=== PATIENT | male | born 1965 | race Caucasian/White ===

== ENCOUNTER → 2020-03-13 | Outpatient (CLI) | payer BC ==
[2020-03-13 11:12] LABS: Basophils % (A) 1 %; Eosinophils # (A) 0.1 k/uL (0-0.7); Eosinophils % (A) 3 %; HCT 35.8 % (39.0-53.0); HGB 11.1 gm/dL (13.0-17.5); Hypochromasia Marked; Lymphocytes # (A) 1.2 k/uL (1.0-4.8); Lymphocytes % (A) 27 %; MCH 25.6 pg (25.0-35.0); MCHC 30.8 g/dL (31.0-37.0); Mean Platelet Volume 7.3; Monocytes # (A) 0.2 k/uL (0-1.0); Monocytes % (A) 5 %; Neutrophils # (A) 2.7 k/uL (1.3-7.7); Neutrophils % (A) 62 %; Platelet Count 290 k/uL (150-450); Poikilocytosis Slight; RBC 4.33 m/uL (4.30-5.90); RDW 14.6 % (11.5-15.5); WBC 4.3 k/uL (3.8-10.6)
[2020-03-13 11:20] LABS: MCV 82.8 fL (80.0-100.0)
[2020-03-13 16:49] LABS: African American GFR (CKD) 99.8 (60.0-200.0); Albumin 4.4 g/dL (3.80-4.90); Albumin/Globulin Ratio 1.83 (1.60-3.17); Calcium 9.5 mg/dL (8.7-10.3); Chol/HDL Ratio 4.83; Globulin 2.4 g/dL (1.6-3.3); LDL Cholesterol,Calculated 131.6 mg/dL (0.0-131.0); Non-African American GFR(CKD) 86.2 (60.0-200.0); Potassium 4.5 mmol/L (3.5-5.5); Total Bilirubin 0.4 mg/dL (0.2-1.2); Total Protein 6.8 g/dL (6.2-8.2); VLDL Calculation 21.4 mg/dL (5.00-40.00)
[2020-03-13 16:56] LABS: T4, Free (Free Thyroxine) 1.1 ng/dL (0.80-1.80)
[2020-03-13 17:00] LABS: Prostate Specific Antigen 0.3 ng/mL (0.0-3.5)
== END | disposition home or self-care (01) ==
LOC: LABWHC1 09:47
PROVIDERS: ATTEND Family Medicine
DX: Z00.00 Encounter for general adult medical examination without abnormal findings (principal); E78.00 Pure hypercholesterolemia, unspecified; I10 Essential (primary) hypertension; D64.9 Anemia, unspecified; Z79.899 Other long term (current) drug therapy
CPT/HCPCS: 36415; 80053; 80061; 84153; 84439; 84443; 85025; 86803

== ENCOUNTER → 2022-01-28 | Outpatient (CLI) | payer MEDICAID ==
[2022-01-28 11:08] LABS: ALT 100 U/L (10-49); AST 61 U/L (14-35); African American GFR (CKD) 111.8 (60.0-200.0); Albumin 4.5 g/dL (3.8-4.9); Alkaline Phosphatase 56 U/L (41-126); Blood Urea Nitrogen 9.9 mg/dL (9.0-27.0); Calcium 9.3 mg/dL (8.7-10.3); Carbon Dioxide 25.8 mmol/L (20.0-27.5); Chloride 101 mmol/L (96-109); Chol/HDL Ratio 5.62 Ratio; Globulin 2.5 g/dL (1.6-3.3); Glucose 102 mg/dL (70-110); LDL Cholesterol,Calculated 165.1 mg/dL (0.0-131.0); Magnesium 2.1 mg/dL (1.5-2.4); Non-African American GFR(CKD) 96.5 (60.0-200.0); Potassium 4.1 mmol/L (3.5-5.5); Sodium 139 mmol/L (135-145)
== END | disposition home or self-care (01) ==
LOC: LABWHC1 07:25
PROVIDERS: ATTEND Nurse Practitioner Adult Health
DX: I10 Essential (primary) hypertension (principal); E78.5 Hyperlipidemia, unspecified
CPT/HCPCS: 36415; 80053; 80061; 83735

== ENCOUNTER → 2023-02-08 | Outpatient (CLI) | payer MEDICAID ==
--- NOTE | 2023-02-08 08:12 | CT ---
EXAMINATION TYPE: CT facial bones wo con CT DLP: 809.9 mGycm, Automated exposure control for dose reduction was used. DATE OF EXAM: 02/08/2023 6:37 AM COMPARISON: None. 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 Coronal, axial and sagittal reformatted images were also provided in soft tissue and bone windows and submitted for interpretation. FINDINGS: Post surgical changes to the right inferior orbit with fixation hardware in place. The naso lacrimal ducts bilaterally appear symmetric and patent. No definitive evidence of prior trauma to the right nasolacrimal duct. It appears separate from the right inferior orbital wall injury. Scattered mild mucosal thickening. The osseous structures are intact. No evidence of acute fracture. Visualized intracranial structures are within normal limits. Soft tissues are grossly unremarkable. IMPRESSION: The nasolacrimal ducts appear symmetric and patent. No evidence for abnormality involving the nasolac rimal duct on the right. The prior right inferior orbital wall fracture appears to not have included the right nasolacrimal duct.
== END | disposition home or self-care (01) ==
LOC: RADCTMAIN 06:04
PROVIDERS: ATTEND Ophthalmology
DX: H04.551 Acquired stenosis of right nasolacrimal duct (principal)
CPT/HCPCS: 70486

== ENCOUNTER → 2025-02-07 | Outpatient (CLI) | payer MEDICAID ==
[2025-02-07 10:30] LABS: HCT 34.6 % (39.6-50.0); HGB 9.6 g/dL (13.0-17.0); MCH 19.3 pg (27.0-32.0); MCHC 27.7 g/dL (32.0-37.0); MCV 69.6 FL (80.0-97.0); NRBC Per 100 WBC 0 X 10*3/uL (0.00-0.01); Platelet Count 297 X 10*3/uL (140-440); RBC 4.97 X 10*6/uL (4.40-5.60); RDW 19.9 % (11.5-14.5); WBC 4.67 X 10*3/uL (4.50-10.00)
[2025-02-07 10:57] LABS: ALT 24 U/L (10-49); AST 22 U/L (14-35); Albumin 4.5 g/dL (3.8-4.9); Albumin/Globulin Ratio 1.88 Ratio (1.60-3.17); Alkaline Phosphatase 61 U/L (41-126); Anion Gap 12.00 mmol/L (4.00-12.00); BUN/Creat Ratio 16.50 Ratio (12.00-20.00); Blood Urea Nitrogen 13.2 mg/dL (9.0-27.0); Calcium 9.0 mg/dL (8.7-10.3); Carbon Dioxide 25.0 mmol/L (21.6-31.8); Chloride 103 mmol/L (96-109); Cholesterol 132.00 mg/dL (0.00-200.00); Globulin 2.4 g/dL (1.6-3.3); Glucose 117 mg/dL (70-110); HDL Cholesterol 40.00 mg/dL (40.00-60.00); LDL Cholesterol,Calculated 72.4 mg/dL (0.0-131.0); Potassium 4.3 mmol/L (3.5-5.5); Sodium 140 mmol/L (135-145); Total Protein 6.9 g/dL (6.2-8.2); Triglycerides 98.10 mg/dL (0.00-149.00); VLDL Calculation 19.62 mg/dL (5.00-40.00)
[2025-02-07 11:11] LABS: Basophils # (M) 0.09 X 10*3/uL (0.00-0.10); Eosinophils # (M) 0.19 X 10*3/uL (0.04-0.35); Lymphocytes # (M) 1.73 X 10*3/uL (0.90-5.00); Microcytosis (M) 2+ (None Seen); Monocytes # (M) 0.42 X 10*3/uL (0.20-1.00); Neutrophils # (M) 2.24 X 10*3/uL (1.80-7.70); Neutrophils % (M) 48 %
== END | disposition home or self-care (01) ==
LOC: LABWHC1 07:14
DX: Z00.00 Encounter for general adult medical examination without abnormal findings (principal); Z13.1 Encounter for screening for diabetes mellitus; I10 Essential (primary) hypertension; E78.2 Mixed hyperlipidemia
CPT/HCPCS: 36415; 80053; 80061; 83036; 84443; 85025